=== PATIENT | female | born 1965 ===

== ENCOUNTER 2020-03-24 15:40 | Emergency (ER) | payer OTHER ==
[~2020-03-24] VITALS: Ht 175.3 cm; Wt 106.6 kg
== END 2020-03-24 19:05 | disposition home or self-care (01) ==
LOC: ER 15:40
DX: B34.9 Viral infection, unspecified (principal); R10.13 Epigastric pain; Z03.818 Encounter for observation for suspected exposure to other biological agents ruled out

== ENCOUNTER 2020-12-25 10:08 | Outpatient (CLI) | payer OTHER | END 2020-12-25 10:13 | disposition home or self-care (01) | LOC: TOM 10:08 | PROVIDERS: ATTEND Internal Medicine Gastroenterology | DX: R13.19 Other dysphagia (principal); K86.2 Cyst of pancreas | CPT/HCPCS: 70492; Q9965 ==